=== PATIENT | male | born 1995 | race Caucasian/White ===

== ENCOUNTER → 2021-02-05 13:18 | Outpatient (BNVA) | payer OTHER, SELFPAY | PROVIDERS: Visit Provider Physician Assistant | DX: S62.602B Fracture of unspecified phalanx of right middle finger, initial encounter for open fracture (principal); S67.192A Crushing injury of right middle finger, initial encounter; X58.XXXA Exposure to other specified factors, initial encounter | CPT/HCPCS: 99203 ==

== ENCOUNTER → 2021-02-10 10:04 | Outpatient (BNVA) | payer OTHER, SELFPAY | PROVIDERS: Visit Provider Physician Assistant | DX: S62.602D Fracture of unspecified phalanx of right middle finger, subsequent encounter for fracture with routine healing (principal); X58.XXXD Exposure to other specified factors, subsequent encounter | CPT/HCPCS: 99213 ==

== ENCOUNTER 2022-07-18 12:46 | Emergency (ER) | payer OTHER, SELFPAY ==
--- NOTE | ~2022-07-18 | XR_ITS ---
EXAMINATION: XR FINGER, LEFT CLINICAL INFORMATION: Puncture wound involving the palmar surface of the left fourth digit. COMPARISON: None TECHNIQUE: Three views of the left ring finger. FINDINGS: Mild fixed flexion deformity is noted at the PIP joint of the left fourth digit with overlying soft tissue swelling predominantly along the dorsal aspect. No underlying osseous or articular abnormalities. No radiopaque foreign body. The remainder of the left hand otherwise appears unremarkable. XR/XR finger LT min 2V IMPRESSION: Mild fixed flexion deformity of the left fourth digit at the level of the PIP joint with overlying soft tissue swelling predominantly along the dorsal aspect with no underlying osseous or articular abnormalities and no radiopaque foreign body.
[2022-07-18 13:04] VITALS: BP 166/92; PULSE 84; RESP 17; TEMP 36.6; O2SAT 99; BMI 23.6
== END 2022-07-18 17:12 | disposition left against medical advice (07) ==
PROVIDERS: Emergency Provider Emergency Medicine; PCP Internal Medicine
DX: S61.432A Puncture wound without foreign body of left hand, initial encounter (principal); X58.XXXA Exposure to other specified factors, initial encounter; Y93.9 Activity, unspecified; Y92.9 Unspecified place or not applicable; Y99.9 Unspecified external cause status
CPT/HCPCS: 73140; 99281; 99283